=== PATIENT | female | born 1995 | race Hispanic/Latino ===

== ENCOUNTER 2020-03-01 20:05 | Emergency (ER) | payer OTHER, SELFPAY ==
--- NOTE | 2020-03-01 20:46 | ER ---
Nurse's Notes [facility] Name: Taylor Whalen Age: 24 yrs Sex: Female : 1995 Arrival Date: 03/01/2020 Time: 20:09 Bed Waiting Private MD: Diagnosis: Assessment: 03/01 20:45 Reassessment:. General: no answer. left \T\ 0821. . mg2 ED Course: 20:09 Patient arrived in ED. ag3 Administered Medications: No medications were administered Outcome: 20:45 Patient left the ED. mg2 Signatures: Wesley Leos RN RN mg2 Jaky Sousa ag3
== END 2020-03-01 20:45 | disposition left against medical advice (07) ==
LOC: ER 20:05
DX: Z02.89 Encounter for other administrative examinations (principal)